=== PATIENT | male | born 1985 | race Caucasian/White ===

== ENCOUNTER 2025-01-06 09:42 | Emergency (ER) | payer MEDICAID ==
[~2025-01-06] VITALS: Ht 180.3 cm; Wt 87.6 kg
[2025-01-06 09:44] VITALS: BP 140/92; PULSE 104; TEMP 98.4; O2SAT 98
--- NOTE | 2025-01-06 10:13 | Physician Documentation ---
History of Present Illness ~ Chief Complaint: Knee Pain Stated Complaint: KNEE PAIN Time Seen by MD: 10:00 HPI Patient is a 39-year-old male. Patient is seen today with complaints of pain and swelling of his right knee. Patient states this 1st occurred at age 23 and he was hospitalized and they were trying to figure out what was going on and juice fluid off his knee but were never able to necessarily figure out a reason. Patient denies any recent injury. He has no other concern or complaint at this time. Medication Reconciliation Allergies: Coded Allergies: Sulfa (Sulfonamide Antibiotics) (Verified Allergy, Unknown, 01/06/25) ALLEGERGY SINCE CHILD DOESN'T RECALL REACTION Review of Systems Constitutional: Denies: chills, fever, weakness Eyes: Denies: pain, blurred vision ENT: Denies: ear pain, nose pain, throat pain, mouth pain Respiratory: Denies: cough, shortness of breath Cardiovascular: Denies: chest pain, palpitations Gastrointestinal: Denies: abdominal pain, nausea, vomiting Genitourinary: Denies: burning, dysuria Male Genitalia: Denies: penile discharge, testicular pain Neurological: Denies: headache, dizziness Musculoskeletal: Denies: pain, swelling Integumentary: Denies: rash, lesions Allergic/Immunologic: Denies: hives, itching Hematologic/Lymphatic: Denies: no symptoms reported Psychiatric: Denies: depression, anxiety Physical Exam Vital Signs: Temperature: 98.4, Source: Oral, Heart Rate: 104, Respiratory Rate: 16, BP: 140/92, Pulse Oximetry: 98, Weight: 87.600 Oxygen Flow Rate: 0 Physical Exam General: Awake and Alert, no acute distress. HEENT: Conjunctiva pink, Sclera clear, Mucus Membranes moist. Neck: Supple without masses and tenderness. Resp: Unlabored. Lungs clear to auscultation bilaterally. Heart: Regular Rate and rhythm, normal S1 and S2 without murmur, rub or gallop. Musculoskeletal: Patient on exam does have a fusion of the right knee without redness without erythema and without induration or sign of bacterial infection. Patient is neurovascularly intact distally. Patient does have decreased range of motion of the right knee in flexion due to pain and sensation of tightness. Extremities: No cyanosis,clubbing or edema. Skin: Warm and Dry. Progress Results/Orders Results/Orders Orders - JANELLE VILLA PAC Knee, Complete (01/06/25 10:08) Completed Orders - JANELLE VILLA PAC Knee, Complete (01/06/25 10:08) Ketorolac Trometh 30mg/Ml Vial (Toradol (01/06/25 10:08) Medications Received in ER Medications (Trade) Dose Ordered Sig/Korin Route PRN Reason Start Time Stop Time Status Last Admin Dose Admin (Toradol inj. 30mg/ml) 30 mg ONCE STAT IM 01/06/25 10:08 01/06/25 10:17 DC 01/06/25 10:48 30 MG Vital Signs 01/06/25 01/06/25 09:44 10:48 Temp 98.4 Pulse 104 Resp 16 16 B/P (MAP) 140/92 Pulse Ox 98 O2 Flow Rate 0 EKG/XRAY/CT/US/VASC/MRI Bone/Soft Tissue X-Ray (Ext.) : Additional Comment X-ray of right knee interpreted by myself today shows no sign of acute fracture, no osteolytic or blastic lesions, bones in anatomic alignment. DIAGNOSTIC RADIOLOGY Patient: SYBIL COLBERT Medical Record: [id number] JOSEPH BEREA : 1985, Age: 39 Sex: Male Location: ER Patient Status: REG ER Service Date/Time: 01/06/25/ 1008 Ordering Physician: JANELLE VILLA PAC Exam: KNEE, COMP 4 VW MIN CLINICAL INDICATION: right knee pain and swelling TECHNIQUE: 3 radiographic views of the right knee were obtained. Comparison: None FINDINGS/IMPRESSION: There is no evidence of acute fracture or dislocation. The visualized joint space is well maintained. The alignment is anatomical. There is no radiopaque foreign body. Electronically Signed by:ALIREZA HUFFMAN MD Date & Time: 01/06/25 1043 Dictated by: ALIREZA HUFFMAN MD Dictation date and time: 01/06/25 1025 Primary Care Provider: NO PRIMARY CARE PROVIDER cc: JANELLE VILLA ~ Medical Decision Making Findings Patient was given dose of Suboxone 8/2 mg film in the ED today. Prescription short-term of Suboxone 8/2 mg one tab 3 times a day for seven days sent to patient's pharmacy. Patient will return to ED with any worsening, concerning or changing symptoms. Patient will follow up with [facility] or [facility] for entrance into the MAT program. Patient was given Toradol 30 mg IM in the ED today and was given a note for w ork. Patient also did have x-ray of right knee showed no acute pathology. Patient will follow up with primary care in 3-5 days if no better as needed sooner for possible referral to early childhood specialist or further workup. Patient will return to ED with any worsening, concerning or changing symptoms. Patient was given a note for work. Departure Disposition: 01 HOME / SELF CARE / HOMELESS Impression: Primary Impression: Knee pain Qualified Codes: M25.561 - Pain in right knee Additional Impression: Effusion of knee Qualified Codes: M25.461 - Effusion, right knee Condition: Stable Discharge Instructions: Knee Effusion, Acute Knee Pain, Adult Additional Instructions: Patient was given Toradol 30 mg IM in the ED today and was given a note for work. Patient also did have x-ray of right knee showed no acute pathology. Patient will follow up with primary care in 3-5 days if no better as needed sooner for possible referral to early childhood specialist or further workup. Patient will return to ED with any worsening, concerning or changing symptoms. Patient was given a note for work. Patient was given a prescription for meloxicam 15 mg one tab once a day to be taken with food for 30 days. Departure Forms: Excuse form Work or School Excused From: Work Excuse beginning now through the following date: Jan 09, 2025 Referrals: NO PRIMARY CARE PROVIDER (PCP) Prescriptions Meloxicam (Meloxicam) 15 Mg Tablet 1 TAB PO DAILY for 30 Days, #30 TAB 0 Refills Prov: JANELLE VILLA 01/06/25 Signature Scribe Signature: No scribe Attestation: No scribe JANELLE VILLA Jan 06, 2025 10:13
--- NOTE | 2025-01-06 10:46 | RADIOLOGY REPORT ---
CLINICAL INDICATION: right knee pain and swelling TECHNIQUE: 3 radiographic views of the right knee were obtained. Comparison: None FINDINGS/IMPRESSION: There is no evidence of acute fracture or dislocation. The visualized joint space is well maintained. The alignment is anatomical. There is no radiopaque foreign body.
[2025-01-06 10:48] VITALS: RESP 16
[2025-01-06] MEDS: ketorolac trometh 30MG/ML vial 30 MG/ML VIAL IM STA (10:48)
[2025-01-06] MEDS ORDERED: MELO-102 PO (11:09)
== END 2025-01-06 11:19 | disposition home or self-care (01) ==
LOC: ER 09:43
DX: M25.461 Effusion, right knee (principal); M25.561 Pain in right knee; Z88.2 Allergy status to sulfonamides
CPT/HCPCS: 73564; 96372; 99283; J1885